=== PATIENT | female | born 1980 ===

== ENCOUNTER 2021-03-09 08:45 | Outpatient (CLI) | payer OTHER | END 2021-03-09 08:46 | disposition home or self-care (01) | LOC: PPH VACUNA 08:45 | DX: Z23 Encounter for immunization (principal) ==

== ENCOUNTER 2021-03-30 23:24 | Outpatient (CLI) | payer OTHER | END 2021-03-30 23:25 | disposition home or self-care (01) | LOC: PPH VACUNA 23:24 | DX: Z23 Encounter for immunization (principal) ==